=== PATIENT | male | born 1945 | race Caucasian/White ===

== ENCOUNTER 2021-03-31 11:49 | Emergency (ER) | payer MEDICARE, BC ==
[2021-03-31] MEDS ORDERED: GLUCOPHAGE500 MG/TAB PO (12:31)
[2021-03-31] MEDS ORDERED: PANTOPRAZOLE SO40 MG PO (12:36)
[2021-03-31] MEDS ORDERED: ALLOPURINOL300 M1 PO (12:36)
[2021-03-31] MEDS ORDERED: PIOGLITAZONE HC30 MG PO (12:36)
[2021-03-31] MEDS ORDERED: SIMVASTATIN40 M1 PO (12:37)
[2021-03-31] MEDS ORDERED: MELOXICAM15 MG PO (12:37)
[2021-03-31] MEDS ORDERED: LISINOPRIL10 MG PO (12:37)
[2021-03-31 12:50] LABS: URINE APPEARANCE CLEAR; URINE BILIRUBIN NEGATIVE (NEGATIVE); URINE BLOOD TRACE (NEGATIVE); URINE COLOR YELLOW; URINE GLUCOSE NEGATIVE (NEGATIVE); URINE KETONE NEGATIVE (NEGATIVE); URINE LEUKOCYTE ESTERASE NEGATIVE (NEGATIVE); URINE NITRATE NEGATIVE (NEGATIVE); URINE PROTEIN(semi-quant) NEGATIVE (NEGATIVE); URINE UROBILINOGEN NORMAL (NORMAL)
[2021-03-31 13:57] VITALS: BP 118/58
[2021-03-31] MEDS ORDERED: CYCLOBENZAPRINE10 M1 PO (14:24)
[2021-03-31] MEDS ORDERED: NORCO 325 MG-51 TA1 PO (14:26)
== END 2021-03-31 14:50 | disposition home or self-care (01) ==
LOC: ED 11:49
PROVIDERS: Nurse Practitioner Family
DX: M54.16 Radiculopathy, lumbar region (principal); E11.40 Type 2 diabetes mellitus with diabetic neuropathy, unspecified; I10 Essential (primary) hypertension; E78.5 Hyperlipidemia, unspecified; K21.9 Gastro-esophageal reflux disease without esophagitis; M10.9 Gout, unspecified; Z87.891 Personal history of nicotine dependence; Z79.84 Long term (current) use of oral hypoglycemic drugs; Z79.899 Other long term (current) drug therapy
CPT/HCPCS: J1100; J1885